=== PATIENT | female | born 1975 | race Hispanic/Latino ===

== ENCOUNTER 2017-03-05 20:28 | Emergency (ER) | payer BC ==
[2017-03-05 20:38] VITALS: TEMP 98.3; O2SAT 99
[2017-03-05 20:41] VITALS: BMI 34.2
--- NOTE | 2017-03-05 20:54 | ED PDOC ---
Arrival/HPI - General Chief Complaint: Lower Extremity Problem/Injury Time Seen by Provider: 03/05/17 20:47 Historian: Patient - History of Present Illness Narrative History of Present Illness (Text): 03/05/17 20:47 41 y/o female, no significant pmh, nkda, c/o rt. foot pain s/p twisted injury. Pt. was running and chasing another person, feel the rt. foot popping sensation , painful to walk and bear weight, no numbness or tingling, no calf pain, no other medical or psychological complaints. Past Medical History - Provider Review Nursing Documentation Reviewed: Yes - Tetanus Immunization Tetanus Immunization: >10 years Ago - Past Medical History Past Medical History: No Previous - Psychiatric Hx Substance Use: No - Surgical History Hx Section: Yes (x3) Hx Cholecystectomy: Yes Hx Tubal Ligation: Yes - Anesthesia Hx Anesthesia: Yes Hx Anesthesia Reactions: No - Suicidal Assessment Feels Threatened In Home Enviroment: No Family/Social History - Physician Review Nursing Documentation Reviewed: Yes Family/Social History: Unknown Family HX Smoking Status: Never Smoked Hx Alcohol Use: No Hx Substance Use: No Hx Substance Use Treatment: No Allergies/Home Meds Allergies/Adverse Reactions: Allergies No Known Allergies Allergy (Verified 10/27/14 20:10) Home Medications: Home Meds Medication Instructions Recorded Confirmed No Known Home Med [No Known Home 10/27/14 03/05/17 Med] Review of Systems - Review of Systems Constitutional: absent: Fatigue, Fevers Eyes: absent: Vision Changes ENT: absent: Hearing Changes Respiratory: absent: SOB, Cough Cardiovascular: absent: Chest Pain Gastrointestinal: absent: Abdominal Pain, Nausea, Vomiting Musculoskeletal: Arthralgias. absent: Back Pain, Myalgias Skin: absent: Rash, Pruritis Physical Exam Vital Signs Reviewed: Yes Vital Signs Temp Pulse Resp BP Pulse Ox 03/05/17 22:36 88 16 124/76 99 03/05/17 20:28 98.3 F 90 18 128/62 99 Temperature: Afebrile Blood Pressure: Normal Pulse: Regular Respiratory Rate: Normal Appearance: Positive for: Well-Appearing, Non-Toxic, Comfortable Pain Distress: Moderate Mental Status: Positive for: Alert and Oriented X 3 - Systems Exam Head: Present: Atraumatic, Normocephalic Pupils: Present: PERRL Extroacular Muscles: Present: EOMI Conjunctiva: Present: Normal Mouth: Present: Moist Mucous Membranes Neck: Present: Normal Range of Motion Respiratory/Chest: Present: Clear to Auscultation, Good Air Exchange. No: Respiratory Distress, Accessory Muscle Use Cardiovascular: Present: Regular Rate and Rhythm, Normal S1, S2. No: Murmurs Abdomen: Present: Normal Bowel Sounds. No: Tenderness, Distention, Peritoneal Signs Back: Present: Normal Inspection Upper Extremity: Present: Normal Inspection. No: Cyanosis, Edema Lower Extremity: Present: Normal Inspection, Other (Rt. ankle/foot: +ttp on the lateral 5th metatarsal region with no swelling, no ankle tenderness or swelling , FROM without limitation, sensation intact, motor 5/5, negative eusebia and wright signs, +DPPT pulses, capillary refill< 2 seconds, neurovascular intact. ). No: Edema Neurological: Present: GCS=15, Speech Normal Skin: Present: Warm, Dry, Normal Color. No: Rashes Psychiatric: Present: Alert, Oriented x 3, Normal Insight, Normal Concentration Medical Decision Making ED Course and Treatment: 03/05/17 20:59 -xray -migel wrap, crutches and non-weight bearing -toradol IM 03/05/17 22:40 -I was notify by the RUBBER COVERING MACHINE OPERATOR varinder that that the patient refused xray and wants to leave the ER with the crutches as she will see her own helper steel fabrication for radiology studies. -pt. left without the discharge or against medical advice. - RAD Interpretation Radiology Orders: 03/05/17 20:59 FOOT RIGHT 3 VIEWS ROUTINE [RAD] Stat - Medication Orders Current Medication Orders: Discontinued Medications Ketorolac Tromethamine (Toradol) 60 mg IM STAT STA Stop: 03/05/17 21:00 Last Admin: 03/05/17 21:45 Dose: 60 mg - PA / [employer] / Resident Statement MD/DO has reviewed & agrees with the documentation as recorded. Disposition/Present on Arrival - Present on Arrival Any Indicators Present on Arrival: No History of DVT/PE: No History of Uncontrolled Diabetes: No Urinary Catheter: No History of Decub. Ulcer: No History Surgical Site Infection Following: None - Disposition Have Diagnosis and Disposition been Completed?: Yes Diagnosis: Left before treatment completed, Foot injury Disposition: ELOPEMENT - ER ONLY Disposition Time: 22:42 Condition: GOOD Forms: [email or web address] (Polish)
[2017-03-05 22:37] VITALS: BP 124/76; PULSE 88; RESP 16
== END 2017-03-05 22:50 | disposition left against medical advice (07) ==
LOC: ED 20:28
DX: S99.921A Unspecified injury of right foot, initial encounter (principal); X50.0XXA Overexertion from strenuous movement or load, initial encounter; Y93.02 Activity, running; Y92.9 Unspecified place or not applicable
CPT/HCPCS: 96372; 99283; J1885